=== PATIENT | female | born 1955 | race Caucasian/White ===

== ENCOUNTER 2017-03-29 11:31 | Day surgery (SDC) | payer OTHER ==
[~2017-03-29] VITALS: Ht 162.6 cm; Wt 61.9 kg
[2017-03-29] MEDS ORDERED: CLONIDINE (12:29)
[2017-03-29] MEDS ORDERED: SIMVASTATIN (12:29)
[2017-03-29] MEDS ORDERED: ASPIRIN (12:29)
[2017-03-29] MEDS ORDERED: LOSARTAN POTASSIUM (12:29)
[2017-03-29] MEDS ORDERED: HCTZ (12:29)
[2017-03-29] MEDS ORDERED: METOPROLOL (12:29)
[2017-03-29 12:30] VITALS: Ht 162.6 cm; Wt 61.9 kg
[2017-03-29 12:42] VITALS: BP 198/91; PULSE 78; RESP 12
[2017-03-29 13:44] VITALS: BP 139/61; PULSE 73; RESP 12
[2017-03-29] MEDS ORDERED: FENTAnyl 50 MCG/ML VIAL ONE (18:03)
[2017-03-29] MEDS ORDERED: MIDAZOLAM 1 MG/ML 2 ML INJ ONE ×2 (18:03)
--- NOTE | 2017-03-30 07:06 | GILP ---
DATE OF PROCEDURE: 03/29/2017 PREOPERATIVE DIAGNOSIS: Screening colonoscopy. POSTOPERATIVE DIAGNOSES: 1. Colonoscopy all the way to the cecum. 2. Internal hemorrhoids. 3. No colon neoplasm was identified. PROCEDURE PERFORMED: Colonoscopy. SURGEON: Kiera Perrin MD. INDICATION FOR PROCEDURE: Mrs. Andres Kay is a 62-year-old female patient was scheduled for screening colonoscopy. The procedure and possible complications were well explained to the patient. The patient understood and consented to the procedure. DESCRIPTION OF PROCEDURE: Under the influence of fentanyl and Versed the colonoscope was carefully introduced in the rectum and under direct vision it was advanced all the way to the cecum. Findings, the patient had internal hemorrhoids. No colon neoplasm was identified. She tolerated the procedure very well. There was no complications from the procedure. At the end of procedure she was awake with stable vital signs and she was discharged home in the care of her family. IMPRESSION: 1. Colonoscopy all the way to the cecum. 2. Internal hemorrhoids. 3. No colon neoplasm was identified. PLAN: Next screening colonoscopy in 10 years. Dictated By: MD PINEDA Luna/jhonathan/rachel /Document#: [id number] CC: Kiera Perrin MD;*EndCC*
== END 2017-03-29 16:20 | disposition home or self-care (01) ==
LOC: GIL 11:31
PROVIDERS: ATTEND Internal Medicine Gastroenterology
DX: Z12.11 Encounter for screening for malignant neoplasm of colon (principal); K64.8 Other hemorrhoids; I10 Essential (primary) hypertension
CPT/HCPCS: 45378; J2250; J3010; Z7610